=== PATIENT | female | born 1960 | race African-American/Black ===

== ENCOUNTER 2023-08-14 17:25 | Emergency (ER) | payer MEDICAID ==
[~2023-08-14] VITALS: Ht 162.6 cm; Wt 60.0 kg
[2023-08-14 17:57] VITALS: TEMP 98.5
[2023-08-14 18:08] LABS: BASOPHILS % (AUTO) 0.7 % (0.0-2.0); EOSINOPHILS % (AUTO) 1.2 % (1.0-6.0); HEMOGLOBIN 12.1 g/dL (12.0-16.0); MEAN CORPUSCULAR HGB CONC 33.5 G/dL (31.0-37.0); MEAN CORPUSCULAR VOLUME 90 fL (80-100); MONOCYTES # (AUTO) 0.5 K/uL (0.1-1.0); MONOCYTES % (AUTO) 8.6 % (2.0-9.0); NEUTROPHILS # (AUTO) 3.6 K/uL (1.8-7.7); NEUTROPHILS % (AUTO) 57.5 % (40.0-70.0); PLATELET COUNT (AUTO) 287 K/uL (150-450); RED BLOOD CELL COUNT(AUTO) 4.02 MIL/uL (4.00-5.20); RED CELL DISTRIBUTION WIDTH 13.3 % (11.5-14.5); WHITE BLOOD COUNT (AUTO) 6.3 K/uL (4.5-11.0)
[2023-08-14 18:33] LABS: ANION GAP 6 mmol/L (8-16); CALCIUM, TOTAL 9.3 mg/dL (8.8-10.5); CARBON DIOXIDE 30 mmol/L (22-29); CHLORIDE 104 mmol/L (98-107); CREATININE 0.72 mg/dL (0.60-1.30); GLOMERULAR FILTR. RATE CALC > 60 mL/min (>60); GLUCOSE,RANDOM 98 mg/dL (70-110); POTASSIUM 3.2 mmol/L (3.5-5.1); SODIUM SERUM 140 mmol/L (136-145); UREA NITROGEN, BLOOD 11 mg/dL (7-18)
[2023-08-14 18:38] LABS: ALANINE AMINOTRANSFERASE 16 U/L (12-78); ALBUMIN 3.8 g/dL (3.4-5.0); ALKALINE PHOSPHATASE 98 U/L (46-116); ASPARTATE AMINOTRANSFERASE 16 U/L (15-37); BILIRUBIN,TOTAL 0.2 mg/dL (0.1-1.0); TOTAL PROTEIN, SERUM 8.2 g/dL (6.4-8.2)
[2023-08-14] MEDS ORDERED: CYCL-448 PO (20:25)
[2023-08-14 20:48] VITALS: BP 138/89; PULSE 75; RESP 18
== END 2023-08-14 20:58 | disposition home or self-care (01) ==
LOC: EMS 17:25
DX: S13.4XXA Sprain of ligaments of cervical spine, initial encounter (principal); M25.552 Pain in left hip; M25.512 Pain in left shoulder; V49.9XXA Car occupant (driver) (passenger) injured in unspecified traffic accident, initial encounter; Y93.89 Activity, other specified; Y92.89 Other specified places as the place of occurrence of the external cause; Y99.8 Other external cause status
CPT/HCPCS: 72040; 73503; 80053; 85025; 99284

== ENCOUNTER 2023-09-01 18:53 | Emergency (ER) | payer MEDICAID ==
[~2023-09-01] VITALS: Ht 162.6 cm; Wt 61.0 kg
[~2023-09-01 18:53] MED LIST: CYCL-448 PO
[2023-09-01 19:26] VITALS: TEMP 98.1
[2023-09-01 21:02] VITALS: BP 152/95; PULSE 70; RESP 15
[2023-09-01] MEDS ORDERED: LIDO1ADH72 TD (22:30)
== END 2023-09-01 22:35 | disposition home or self-care (01) ==
LOC: EMS 18:55
DX: M25.512 Pain in left shoulder (principal); G62.9 Polyneuropathy, unspecified
CPT/HCPCS: 99283; Z7502